=== PATIENT | male | born 1945 | race Caucasian/White ===

== ENCOUNTER 2017-08-27 20:57 | Observation (INO) ==
--- NOTE | 2017-08-27 23:39 | Internal Med History&Physical ---
<Cheo Hanson - Last Filed: 08/27/17 23:35> Date of Encounter: 08/27/17 Time of Encounter: 23:39 Internal Medicine - H&P: HPI Chief complaint: lower abdominal pain Admitted From: Home Plans for Post Hospital Care: Home History of present illness: Mr. Díaz is a 72 year old male w/ pmh of resected tongue cancer, CAD w/ stents, HTN presented to [place] ED due to sharp lower abdominal pain. Patient was found to have potential mesenteric volvulus on CT. Patient was working out in the yard, then around 4 pm patient was enjoying a glass of water on his front porch and he developed a severe 10/10 sharp pain in his central lower abdomen. Patient arrived at [facility] at 5 pm, and his symptoms slowly resolved. On arrival at [facility], patient was asymptomatic. Patient has never had an episode like this previously, and patient has never had abdominal surgery. Patient had a solid bowel movement around 1 pm. Patient denies nausea, vomiting , constipation diarrhea, sob, chest pain, fever, chills, fever. Past Med Surg Social Fam HX - Past Medical History Medical history: cancer, hypertension, myocardial infarction Psychiatric history: no psych history - Social History Smoking Status: Never smoker Smokeless Tobacco Status: No Alcohol use: none Drug use: none Internal Medicine - H&P: Meds Atorvastatin [Lipitor] 80 mg PO HS 08/27/17 [History] Enalapril Maleate [Vasotec] 20 mg PO BID 08/27/17 [History] Metoprolol [Lopressor] 12.5 mg PO BID 08/27/17 [History] amLODIPine [Norvasc] 5 mg PO DAILY 08/27/17 [History] 3 Allergy/AdvReac Type Severity Reaction Status Date / Time No Known Allergies Allergy Verified 08/27/17 17:55 All Systems PM: A 10-system review of systems was performed and is negative for pertinent findings except as documented above in the HPI. - Constitutional Constitutional: no anorexia, no chills, no excessive sweating, no fatigue, no fever(s), no night sweats, no weakness, no weight gain - EENT Eyes: no change in vision, no discharge, no pain, no photophobia Ears: no ear discharge, no ear pain, no tinnitus Nose, mouth and throat: no dysphagia, no nasal discharge, no neck pain, no sore throat - Cardiovascular Cardiovascular ROS IM: no chest pain, no diaphoresis, no dyspnea, no lightheadedness, no palpitations, no syncope - Respiratory Respiratory: no cough, no dyspnea, no wheezing, no excessive phlegm production - Gastrointestinal Gastrointestinal: no abdominal pain, no diarrhea, no hematemesis, no hematochezia, no melena, no nausea, no vomiting - Musculoskeletal Musculoskeletal ROS IM: no numbness, no tingling - Integumentary Integumentary IM: no rash, no unusual bruising - Neurological Neurological ROS: no confusion, no convulsions, no focal weakness, no numbness, no tingling, no tremor(s) - Hematologic/Lymphatic Hematologic/Lymphatic: no easy bruising - Constitutional Vitals: Temp Pulse Resp BP Pulse Ox 97.8 F 53 14 151/93 97 08/27/17 22:51 08/27/17 22:51 08/27/17 22:51 08/27/17 22:51 08/27/17 22:51 General appearance: Present: cooperative, A&O X 3, pleasant, no acute distress, answers questions appropriately - Head Head exam: Present: atraumatic, normocephalic - Eye Eye exam: Present: PERRL, conjuntiva pink, sclera anicteric Pupils: Present: PERRL - Neck Neck exam general surgery: Present: supple, trachea midline. Absent: lymphadenopathy - Respiratory Respiratory exam: Present: CTAB. Absent: accessory muscle use, rales, rhonchi, wheezes - Cardiovascular Cardiovascular exam: Present: RRR, +S1, +S2. Absent: diastolic murmur, gallop, rubs, systolic murmur - GI/Abdominal GI/Abdominal exam: Present: normal bowel sounds, soft, no peritoneal signs. Absent: distended, tenderness - Extremities Exam Extremities exam: Present: warm, radial pulses palpable and symmetrical. Absent : calf tenderness, cyanotic, pedal edema - Neurological Exam Neurological exam: Present: CN II-XII intact, oriented X3, no focal deficits. Absent: pronater drift, facial droop, speech deficit - Skin Skin exam: Present: dry, intact - Assessment and plan (1) Volvulus of midgut Current Visit: Yes Status: Acute Assessment and plan: Sharp lower abdominal pain, now resolved. At [place], CT read as concerning for potential mesenteric volvulus. Based on clinic exam, volvulus may have spontaneously resolved. - Surgery consulted - serial abdominal exams. - npo - continue to monitor vitals, if patient becomes septic will start antibiotic treatment (2) HTN (hypertension) Current Visit: Yes Status: Acute Assessment and plan: continue home Rx. currently stable. [place] continue to monitor Qualifiers: Qualified Code(s): I10 - Essential (primary) hypertension (3) Dehydration after exertion Current Visit: Yes Status: Acute Assessment and plan: U/A at [place] suggests patient is dehydrated. As well, dehydration is consistent with history. - IVF (4) CAD (coronary artery disease) Current Visit: Yes Status: Acute Assessment and plan: prev stents placed. currently stable and asymptomatic. Qualifiers: Qualified Code(s): I25.10 - Atherosclerotic heart disease of [place] coronary artery without angina pectoris (5) Tongue cancer Current Visit: Yes Status: Acute Assessment and plan: patient had resection and follows with oncology. (6) DVT prophylaxis Current Visit: Yes Status: Acute Assessment and plan: sq heparin - Time Spent With Patient Total time spent is greater than 50% in coordination of care (as documented) at patient's floor/unit and/or counseling patient: <Les Montes De Oca P - Last Filed: 08/28/17 05:38> Date of Encounter: 08/27/17 Internal Medicine - H&P: HPI History of present illness: Mr. Díaz is a 72 year old male All Systems PM: A 10-system review of systems was performed and is negative for pertinent findings except as documented above in the HPI. - Constitutional Vitals: Temp Pulse Resp BP Pulse Ox 98.0 F 53 14 122/61 99 08/28/17 03:48 08/28/17 03:48 08/28/17 03:48 08/28/17 03:48 08/28/17 03:48 Internal Med - H&P Results - Labs CBC & Chem 7: 08/28/17 04:20 08/28/17 04:20 Labs: Short CBC 08/28/17 Range/Units 04:20 WBC 6.4 (4.3-11.1) K/mcL Hgb 12.4 L (12.9-16.9) g/dL Hct 35.4 L (37.5-50.1) % Plt Count 141 (140-400) K/mcL Neutrophils # 3.8 (1.6-8.9) K/mcL BMP 08/28/17 04:20 Sodium 140 Potassium 3.9 Chloride 109 H Carbon Dioxide 27 BUN 19 Creatinine 0.99 Glucose 93 Calcium 9.0 - Attending Attestation I have seen the patient and performed my own physical examination on 08/27/17. I have discussed the case with the resident physician. I agree with the resident physicians plan of care as documented in his history and physical note. Briefly, patient is a very pleasant gentleman admitted as transfer from [place] for abdominal pain. He was found to have a potential mesenteric volvulus on CT. ED physician consulted surgeon and asked us to admit. Upon arrival to [facility], patient was completely pain free. He is in good spirits. We will follow up with surgery's recommendations after they evaluate. We will keep NPO for now and monitor with serial abdominal examinations. Will add IV protonix for GI prophylaxis. We will hydrate with IV NS. - Assessment and plan (1) Volvulus of midgut Current Visit: Yes Status: Inactive (2) HTN (hypertension) Current Visit: Yes Status: Acute Qualifiers: Qualified Code(s): I10 - Essential (primary) hypertension (3) Dehydration after exertion Current Visit: Yes Status: Acute (4) CAD (coronary artery disease) Current Visit: Yes Status: Acute Qualifiers: Qualified Code(s): I25.10 - Atherosclerotic heart disease of [place] coronary artery without angina pectoris (5) Tongue cancer Current Visit: Yes Status: Acute (6) DVT prophylaxis Current Visit: Yes Status: Acute - Time Spent With Patient Total time spent is greater than 50% in coordination of care (as documented) at patient's floor/unit and/or counseling patient:
[2017-08-27] MEDS ORDERED: Naloxone 0.4 MG/ML INJ IVP PRN (23:52)
[2017-08-28] MEDS: 0.9 % Sodium Chloride 1,000 ML IVC SCH ×2 (00:12→13:30)
[2017-08-28 04:44] LABS: Basophils % 0.5 %; Eosinophils # 0.2 K/mcL (0.0-0.6); Hematocrit 35.4 % (37.5-50.1); Hemoglobin 12.4 g/dL (12.9-16.9); Immature Granulocytes % 0.5 % (0-4); Lymphocytes # 1.9 K/mcL (0.6-4.6); Lymphocytes % 29.8 %; Mean Corpuscular Hemoglobin 34.9 pg (28.0-33.3); Mean Corpuscular Volume 99.7 fL (83.0-100.0); Mean Platelet Volume 11.2 fL (9.4-12.4); Monocytes # 0.5 K/mcL (0.0-1.3); Monocytes % 7.6 %; Neutrophils # 3.8 K/mcL (1.6-8.9); Platelet Count 141 K/mcL (140-400); Red Blood Count 3.55 M/mcL (4.19-5.50); Red Cell Distribution Width 12.8 % (11.5-14.5); Segmented Neutrophils % 58.6 %
[2017-08-28 05:07] LABS: BUN/Creatinine Ratio 19 (6-26); Blood Urea Nitrogen 19 mg/dL (8-23); Carbon Dioxide 27 mEq/L (23-29); Chloride 109 mEq/L (98-107); Glucose 93 mg/dL (70-105); Osmolality,Calculated 292 (280-300); Potassium 3.9 mEq/L (3.5-5.1); Sodium 140 mEq/L (136-145); eGFR For African Americans > 60 (> 60); eGFR For Non-African Americans > 60 (> 60)
[2017-08-28] MEDS: *HR* Heparin 5,000 UNIT/ML VIAL SQ SCH ×2 (05:35→17:24)
--- NOTE | 2017-08-28 06:49 | General Surgery Consult Note ---
Date of Encounter: 08/28/17 Time of Encounter: 06:46 Assessment and Plan (1) Abnormal CT of the abdomen Current Visit: Yes Status: Acute I splayed to the patient that I personally reviewed the CT scan's imaging and report. There was a stated swirl pattern that was concerning however there was no supporting signs of edema of the bowel bowel obstruction or volvulus present. This pattern has be seen as a congenital finding in some patients and he does not currently have any signs of abdominal pain present or any abdominal symptoms. I will go ahead and order for a small bowel follow-through to show that there is no evidence of volvulus of bowel obstruction present. Discussed with the patient and he agrees with the above plan. History of Present Illness Consult date: 08/28/17 Reason for consult: abdominal pain History of present illness: The patient is a 72-year-old male with a past medical history significant for hypertension who states that yesterday afternoon while planting briggs he experienced midabdominal pain that was continuous and located in a bandlike fashion across the mid abdomen. He states that the pain was continuous and was hard to describe. He states he also had some "gas" with the pain. He denies any nausea or vomiting and denied any diarrhea or constipation symptoms. He normally has a bowel movement once per day and has denied any rectal bleeding. He did have a colonoscopy approximately 5 years ago. He states currently his pain is no longer present. As a positive appetite and states that he went to the emergency room at [facility] and then subsequently was transported to [facility] for further evaluation. He did have a CT scan of the abdomen and pelvis performed which showed an abnormality or "swirl pattern" that was concerning. Past Med Surg Social Fam HX - Past Medical History Medical history: cancer, hypertension, myocardial infarction Psychiatric history: no psych history - Past Surgical History Surgical History: other (colonoscopy) - Social History Smoking Status: Never smoker Smokeless Tobacco Status: No Alcohol use: none Drug use: none Medications and Allergies Atorvastatin [Lipitor] 80 mg PO HS 08/27/17 [History] Metoprolol [Lopressor] 12.5 mg PO BID 08/27/17 [History] amLODIPine [Norvasc] 5 mg PO DAILY 08/27/17 [History] Enalapril Maleate [Vasotec] 10 mg PO BID 08/28/17 [History] Latanoprost [Xalatan] 1 drop OP HS 08/28/17 [History] 3 Allergy/AdvReac Type Severity Reaction Status Date / Time No Known Allergies Allergy Verified 08/27/17 17:55 Review of Systems All systems PM: reviewed and no additional remarkable complaints except as stated All systems PM: The remainder of the systems were reviewed and are negative General Surgery Exam Initial Vital Signs Temp Pulse Resp BP Pulse Ox 97.8 F 53 14 151/93 97 08/27/17 22:51 08/27/17 22:51 08/27/17 22:51 08/27/17 22:51 08/27/17 22:51 - General physical appearance well nourished, no distress - Respiratory normal expansion, normal respiratory effort, clear to auscultation - Cardiovascular Cardiovascular exam: Present: RRR, no murmurs/rubs/gallops - Abdomen Abdomen general surgery: Present: bowel sounds present, soft, non tender - Neurologic Present: CN 2-12 grossly intact - Musculoskeletal Present: other (No clubbing cyanosis, or edema) Exam Initial Vital Signs Temp Pulse Resp BP Pulse Ox 97.8 F 53 14 151/93 97 08/27/17 22:51 08/27/17 22:51 08/27/17 22:51 08/27/17 22:51 08/27/17 22:51 Results - Labs 08/29/17 05:03 08/29/17 05:03 Abnormal lab results RBC 3.55 M/mcL (4.19-5.50) L 08/28/17 04:20 Hgb 12.4 g/dL (12.9-16.9) L 08/28/17 04:20 Hct 35.4 % (37.5-50.1) L 08/28/17 04:20 MCH 34.9 pg (28.0-33.3) H 08/28/17 04:20 Chloride 109 mEq/L (98-107) H 08/28/17 04:20 Diabetes panel 08/28/17 Range/Units 04:20 Sodium 140 (136-145) mEq/L Potassium 3.9 (3.5-5.1) mEq/L Chloride 109 H (98-107) mEq/L Carbon Dioxide 27 (23-29) mEq/L BUN 19 (8-23) mg/dL Creatinine 0.99 (0.70-1.30) mg/dL Glucose 93 (70-105) mg/dL Calcium 9.0 (8.6-10.3) mg/dL Calcium panel 08/28/17 Range/Units 04:20 Calcium 9.0 (8.6-10.3) mg/dL Pituitary panel 08/28/17 Range/Units 04:20 Sodium 140 (136-145) mEq/L Potassium 3.9 (3.5-5.1) mEq/L Chloride 109 H (98-107) mEq/L Carbon Dioxide 27 (23-29) mEq/L BUN 19 (8-23) mg/dL Creatinine 0.99 (0.70-1.30) mg/dL Glucose 93 (70-105) mg/dL Calcium 9.0 (8.6-10.3) mg/dL Adrenal panel 08/28/17 Range/Units 04:20 Sodium 140 (136-145) mEq/L Potassium 3.9 (3.5-5.1) mEq/L Chloride 109 H (98-107) mEq/L Carbon Dioxide 27 (23-29) mEq/L BUN 19 (8-23) mg/dL Creatinine 0.99 (0.70-1.30) mg/dL Glucose 93 (70-105) mg/dL Calcium 9.0 (8.6-10.3) mg/dL All other labs normal. - Imaging CT scan - abdomen: report reviewed, image reviewed (Nursing reviewed the CT scan images and report. No free air no free fluid no abscess or masses. No signs of bowel obstruction. Noted swollen pattern on the mesentery but no sign of true volvulus or obstruction symptoms. Noted calcifications of the vessels but no signs of thrombus present) Consult Discharge Plan - Plan Referrals: Toño Allen MD [Primary Care Provider] -
[2017-08-28] MEDS: Pantoprazole 40 MG VIAL IVP SCH (08:18)
[2017-08-28] MEDS: amLODIPine 5 MG TABLET PO SCH (08:18)
[2017-08-28] MEDS: Lisinopril 20 MG TABLET PO SCH ×2 (08:18→20:00)
--- NOTE | 2017-08-28 11:27 | Internal Med Progress Note ---
Date of Encounter: 08/28/17 Time of Encounter: 11:25 - Assessment and plan (1) Volvulus of midgut Current Visit: Yes Status: Inactive Assessment and plan: Sharp lower abdominal pain, now resolved. At [place], CT read as concerning for potential mesenteric volvulus. Based on clinic exam, volvulus may have spontaneously resolved. - Surgery consulted, recommendations appreciated - npo - continue to monitor vitals, if patient becomes septic will start antibiotic treatment - Has returned from [facility] just now, follow-up Surgery recs. (2) HTN (hypertension) Current Visit: Yes Status: Acute Assessment and plan: continue home Rx. Norvasc, Lisinopril, metoprolol. Qualifiers: Qualified Code(s): I10 - Essential (primary) hypertension (3) Dehydration after exertion Current Visit: Yes Status: Acute Assessment and plan: U/A at [place] suggests patient is dehydrated. As well, dehydration is consistent with history. Continue IVF (4) CAD (coronary artery disease) Current Visit: Yes Status: Acute Assessment and plan: prev stents placed. currently stable and asymptomatic. Qualifiers: Qualified Code(s): I25.10 - Atherosclerotic heart disease of [place] coronary artery without angina pectoris (5) Tongue cancer Current Visit: Yes Status: Acute Assessment and plan: patient had resection and follows with oncology. (6) DVT prophylaxis Current Visit: Yes Status: Acute Assessment and plan: sq heparin - Time Spent With Patient Total time spent is greater than 50% in coordination of care (as documented) at patient's floor/unit and/or counseling patient: - Subjective Interval history: Patient states he is not currently having abdominal pain. Denies fevers/chills , n/v, diarrhea, constipation. - Constitutional Vitals: Temp Pulse Resp BP Pulse Ox 97.7 F 95 14 125/61 94 08/28/17 11:13 08/28/17 11:13 08/28/17 11:13 08/28/17 11:13 08/28/17 11:13 General appearance: Present: cooperative, A&O X 3, pleasant, no acute distress, answers questions appropriately - Head Head exam: Present: atraumatic, normocephalic - Eye Eye exam: Present: PERRL, conjuntiva pink, sclera anicteric Pupils: Present: PERRL - Neck Neck exam general surgery: Present: supple, trachea midline. Absent: lymphadenopathy - Respiratory Respiratory exam: Present: CTAB. Absent: accessory muscle use, rales, rhonchi, wheezes - Cardiovascular Cardiovascular exam: Present: RRR, +S1, +S2. Absent: diastolic murmur, gallop, rubs, systolic murmur - GI/Abdominal GI/Abdominal exam: Present: normal bowel sounds, soft, no peritoneal signs. Absent: distended, tenderness - Extremities Exam Extremities exam: Present: warm, radial pulses palpable and symmetrical. Absent : calf tenderness, cyanotic, pedal edema - Neurological Exam Neurological exam: Present: CN II-XII intact, oriented X3, no focal deficits. Absent: pronater drift, facial droop, speech deficit - Skin Skin exam: Present: dry, intact Internal Medicine: Result - Labs CBC & Chem 7: 08/28/17 04:20 08/28/17 04:20 Labs: Short CBC 08/28/17 Range/Units 04:20 WBC 6.4 (4.3-11.1) K/mcL Hgb 12.4 L (12.9-16.9) g/dL Hct 35.4 L (37.5-50.1) % Plt Count 141 (140-400) K/mcL Neutrophils # 3.8 (1.6-8.9) K/mcL BMP 08/28/17 04:20 Sodium 140 Potassium 3.9 Chloride 109 H Carbon Dioxide 27 BUN 19 Creatinine 0.99 Glucose 93 Calcium 9.0 Consult Discharge Plan - Plan Referrals: Toño Allen MD [Primary Care Provider] -
[2017-08-29 05:27] LABS: Basophils % 0.4 %; Eosinophils # 0.2 K/mcL (0.0-0.6); Eosinophils % 3.8 %; Hematocrit 35.1 % (37.5-50.1); Hemoglobin 12.2 g/dL (12.9-16.9); Immature Granulocytes % 0.4 % (0-4); Lymphocytes # 1.9 K/mcL (0.6-4.6); Lymphocytes % 34.6 %; Mean Corpuscular HGB Conc 34.8 g/dL (31.6-35.5); Mean Corpuscular Hemoglobin 34.9 pg (28.0-33.3); Mean Corpuscular Volume 100.3 fL (83.0-100.0); Mean Platelet Volume 11.3 fL (9.4-12.4); Monocytes # 0.4 K/mcL (0.0-1.3); Monocytes % 6.8 %; Platelet Count 131 K/mcL (140-400); Red Cell Distribution Width 12.9 % (11.5-14.5)
[2017-08-29 05:39] VITALS: BP 124/53
[2017-08-29 05:46] LABS: BUN/Creatinine Ratio 18 (6-26); Blood Urea Nitrogen 20 mg/dL (8-23); Calcium 8.4 mg/dL (8.6-10.3); Carbon Dioxide 27 mEq/L (23-29); Chloride 112 mEq/L (98-107); Glucose 82 mg/dL (70-105); Osmolality,Calculated 294 (280-300); Potassium 4.1 mEq/L (3.5-5.1); Sodium 141 mEq/L (136-145); eGFR For African Americans > 60 (> 60); eGFR For Non-African Americans > 60 (> 60)
[2017-08-29] MEDS: Pantoprazole 40 MG VIAL IVP SCH (06:05)
[2017-08-29] MEDS: *HR* Heparin 5,000 UNIT/ML VIAL SQ SCH (06:06)
--- NOTE | 2017-08-29 07:13 | General Surgery Progress Note ---
Date of Encounter: 08/29/17 Time of Encounter: 06:45 Subjective Narrative: No recurrence of abdominal pain. Tolerated soft diet yesterday p.m. with no difficulty. Denies recurrence of pain/discomfort, nausea, vomiting, bloating, distention. Has had plentiful flatus, but no bowel movements as of yet. Small bowel follow-through study was normal and this was explained to the patient. Objective Vital Signs - Last 8 Hours Temp Pulse Resp BP Pulse Ox 08/29/17 05:38 97.6 F 50 14 124/53 98 Intake and Output 08/28/17 08/28/17 08/29/17 15:59 23:59 07:59 Intake Total 900 / 900 624 / 624 0 / 0 Output Total 325 / 325 375 / 375 500 / 500 Balance 575 / 575 249 / 249 -500 / -500 Intake: IV Fluids 900 / 900 384 / 384 0.9 % Sodium Chloride 1,000 ML 900 / 900 384 / 384 @ 100 mls/hr IVC .Q10H RODRIGO Rx#: [id number] Oral 0 / 0 240 / 240 0 / 0 Output: Urine 325 / 325 375 / 375 500 / 500 Other: Meal NPO Dinner Percent of Meal Consumed 0% 100% Stool Size Moderate Stool Consistency formed Stool Color Brown # Voids 1 # Bowel Movements 0 0 1 Weight 61.3 kg Blood Glucose* 101 Patient Weight 08/29/17 23:59 Weight 61.3 kg VITAL SIGNS: Reviewed. See [facility] GENERAL: comfortably supine, no acute distress, answers questions appropriately. HEENT: Normocephalic, PER, EOMi, oropharynx pink/moist CV: RRR, no murmurs or gallops, no JVD RESPIRATORY: CTAB without wheezes, rales, or rhonchi ABD: active bowel sounds, grossly normal appearance, soft, non-tender, no rebound/guarding/rigidity, no peritoneal signs EXTREMITY: grossly normal motor function, no pedal edema, peripheral pulses 2+ b /l NEUROLOGIC EXAM: AOx3, obeys commands, no speech deficits. PSYCHIATRIC: normal mood and affect SKIN: no gross lesions, rashes, or skin changes - Labs 08/29/17 05:03 08/29/17 05:03 Diabetes panel 08/29/17 Range/Units 05:03 Sodium 141 (136-145) mEq/L Potassium 4.1 (3.5-5.1) mEq/L Chloride 112 H (98-107) mEq/L Carbon Dioxide 27 (23-29) mEq/L BUN 20 (8-23) mg/dL Creatinine 1.10 (0.70-1.30) mg/dL Glucose 82 (70-105) mg/dL Calcium 8.4 L (8.6-10.3) mg/dL Calcium panel 08/29/17 Range/Units 05:03 Calcium 8.4 L (8.6-10.3) mg/dL Pituitary panel 08/29/17 Range/Units 05:03 Sodium 141 (136-145) mEq/L Potassium 4.1 (3.5-5.1) mEq/L Chloride 112 H (98-107) mEq/L Carbon Dioxide 27 (23-29) mEq/L BUN 20 (8-23) mg/dL Creatinine 1.10 (0.70-1.30) mg/dL Glucose 82 (70-105) mg/dL Calcium 8.4 L (8.6-10.3) mg/dL Adrenal panel 08/29/17 Range/Units 05:03 Sodium 141 (136-145) mEq/L Potassium 4.1 (3.5-5.1) mEq/L Chloride 112 H (98-107) mEq/L Carbon Dioxide 27 (23-29) mEq/L BUN 20 (8-23) mg/dL Creatinine 1.10 (0.70-1.30) mg/dL Glucose 82 (70-105) mg/dL Calcium 8.4 L (8.6-10.3) mg/dL Consult Discharge Plan - Plan Referrals: Toño Allen MD [Primary Care Provider] -
--- NOTE | 2017-08-29 07:33 | Event Note ---
Date of Encounter: 08/29/17 Time of Encounter: 06:45 Pt tolerated dinner without any recurrence of abdominal pain, discomfort, nausea , vomiting, bloating, or distention. Plentiful flatus, but no BM yet. No acute complaints per patient. VITAL SIGNS: Reviewed. See [facility] GENERAL: comfortably supine in bed in no acute distress. HEENT: Normocephalic, PER, EOMi, oropharynx pink/moist CV: RRR, no murmurs or gallops, no JVD RESPIRATORY: CTAB without wheezes, rales, or rhonchi ABD: active bowel sounds, soft, non-tender, no rebound/guarding/rigidity, no peritoneal signs EXTREMITY: grossly normal motor function, no pedal edema, peripheral pulses 2+ b /l NEUROLOGIC EXAM: AOx3, obeys commands, no speech deficits. PSYCHIATRIC: normal mood and affect SKIN: no gross lesions, rashes, or skin changes SB follow through: "There is normal transit time to the terminal ileum. No focal abnormalities, strictures or obstructions are seen of the small bowel. Spot images of the terminal ileum are unremarkable." Abnormal CT + Abdominal pain -- pain resolved with no ongoing evidence of obstruction Plan: - Discussed with hospitalist - Patient clear from surgical standpoint; surgery will sign off at this time. - Recommend stool softeners or Metamucil to help with BM's upon discharge.
[2017-08-29] MEDS: Lisinopril 20 MG TABLET PO SCH (07:39)
[2017-08-29] MEDS: amLODIPine 5 MG TABLET PO SCH (07:39)
--- NOTE | 2017-08-29 08:31 | Discharge Summary ---
- NOTES TO OUTPATIENT PROVIDER Notes to Outpatient Provider: - Follow-up in regards to abdominal pain. Unsure if this was truley volvulus or not. - Follow-up heart rate. Metoprolol was held prior to discharge until reassessed in office. Patient agreement to this. 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 Díaz is a 72 year old male w/ pmh of resected tongue cancer, CAD w/ stents, HTN presented to [facility] due to sharp lower abdominal pain. Patient was found to have potential mesenteric volvulus on CT. Patient was working out in the yard, then around 4 pm patient was enjoying a glass of water on his front porch and he developed a severe 10/10 sharp pain in his central lower abdomen. Patient arrived at [facility] at 5 pm, and his symptoms slowly resolved. On arrival at [facility], patient was asymptomatic. Patient has never had an episode like this previously, and patient has never had abdominal surgery. Patient had a solid bowel movement around 1 pm. Patient denies nausea, vomiting , constipation diarrhea, sob, chest pain, fever, chills, fever. He was admitted for further management. Surgery was consulted and patient was placed NPO. The Surgery team evaluated the CT scan and did not see any signs of edema of the obwel obstruction or volvulus present. A small bowel follow-through was then ordered and was unremarkable. Patient was able to advance his diet without issue. Patient did not have any abdominal pain since that episode prior to admission. He was discharged home in stable condition with recommendation of stool softeners or Metamucil to help with BM's upon discharge. - Time Spent with Patient Total time spent providing and/or coordinating discharge services: - Discharge Medications Home Medications: Atorvastatin [Lipitor] 80 mg PO HS 08/27/17 [History] amLODIPine [Norvasc] 5 mg PO DAILY 08/27/17 [History] Enalapril Maleate [Vasotec] 10 mg PO BID 08/28/17 [History] Latanoprost [Xalatan] 1 drop OP HS 08/28/17 [History] Allergies/Adverse Reactions: 3 Allergy/AdvReac Type Severity Reaction Status Date / Time No Known Allergies Allergy Verified 08/27/17 17:55 Date of admission: 08/27/17 22:32 Primary care physician: Toño Allen MD Consults: 08/27/17 23:53 Consult to Surgery [CONS] Routine Consulting Provider: Surgery [facility] Reason for Consult: mesenteric volvulus Call Completed: Yes Discharging clinician: Mariaelena Martinez - Constitutional Vitals: Temp Pulse Resp BP Pulse Ox 97.6 F 50 14 124/53 98 08/29/17 05:38 08/29/17 05:38 08/29/17 05:38 08/29/17 05:38 08/29/17 07:43 General appearance: Present: cooperative, A&O X 3, pleasant, no acute distress, answers questions appropriately - Head Head exam: Present: atraumatic, normocephalic - Eye Eye exam: Present: PERRL, conjuntiva pink, sclera anicteric Pupils: Present: PERRL - Neck Neck exam general surgery: Present: supple, trachea midline. Absent: lymphadenopathy - Respiratory Respiratory exam: Present: CTAB. Absent: accessory muscle use, rales, rhonchi, wheezes - Cardiovascular Cardiovascular exam: Present: RRR, +S1, +S2. Absent: diastolic murmur, gallop, rubs, systolic murmur - GI/Abdominal GI/Abdominal exam: Present: normal bowel sounds, soft, no peritoneal signs. Absent: distended, tenderness - Extremities Exam Extremities exam: Present: warm, radial pulses palpable and symmetrical. Absent : calf tenderness, cyanotic, pedal edema - Neurological Exam Neurological exam: Present: CN II-XII intact, oriented X3, no focal deficits. Absent: pronater drift, facial droop, speech deficit - Skin Skin exam: Present: dry, intact - Patient Status Disposition: Home, Self-Care Condition: Good Functional capacity at discharge: independent ambulation Overall status at discharge: patient is back to baseline - Discharge Instructions Follow Up With: Toño Allen MD [Primary Care Provider] - - Diet and Activity Activity: increase activity as tolerated Diet: advance to your usual diet, other (Add stool softeners or Metamucil to help with bowel movement as instructed by Surgery service.)
[2017-08-29] MEDS ORDERED: NON-FORMULARY MEDICATION 1 EACH EACH (Enalapril Maleate [Vasotec] 10 MG) PO SCH (09:00)
== END 2017-08-29 10:22 | disposition home or self-care (01) ==
LOC: SUATTDRO 22:32 → INTOOBSV 22:32 → 3ANU 22:32
PROVIDERS: ADMIT Family Medicine; ATTEND Family Medicine